=== PATIENT | male | born 1980 | race American Indian/Alaskan Native ===

== ENCOUNTER 2016-11-25 21:45 | Emergency (ER) | payer MEDICARE ==
[2016-11-25 23:04] LABS: Basophils % (Auto) 0.3 % (0.0-1.8); Eosinophils % (Auto) 0.9 % (0.0-4.3); Hematocrit 43.4 % (35.5-45.6); Hemoglobin 14.3 gm/dl (11.8-15.2); Mean Corpuscular HGB Conc 33 % (32-34); Mean Corpuscular Hemoglobin 30 pg (28-32); Mean Corpuscular Volume 91 fl (84-94); Platelet Count 219 K/mm3 (140-440); Red Blood Count 4.78 M/mm3 (3.65-5.03); Red Cell Distribution Width 13.9 % (13.2-15.2); White Blood Count 6.9 K/mm3 (4.5-11.0)
[2016-11-25 23:21] LABS: Anion Gap 21 mmol/L; BUN/Creatinine Ratio 11; Blood Urea Nitrogen 10 mg/dL (9-20); Calcium 8.9 mg/dL (8.4-10.2); Carbon Dioxide 18 mmol/L (22-30); Glucose 123 mg/dL (75-100); Potassium 3.7 mmol/L (3.6-5.0); Sodium 137 mmol/L (137-145)
[2016-11-25] MEDS ORDERED: KEPPRA 1,000 MG/NS 0.75% 100ML 1,000 MG/100 ML BAG IV ONE (23:23)
--- NOTE | 2016-11-25 23:51 | Emergency Department Report ---
HPI - General Chief Complaint: Seizure Time Seen by Provider: 11/25/16 23:23 - HPI HPI: Room 1 The patient is a 36-year-old male presenting with chief complaint of seizure. The patient has a history of seizures but has not had a seizure since age 16 and is currently not on any antiepileptics. Family reports the patient was around a corner with his friends and they reported the patient had 2 seizures approximately 15 minutes apart. The patient complainsof of headache Location: [See above] Duration: [See above] Quality: Generalized tonic-clonic Severity: Moderate Modifying factors: [see above] Context: [see above] Mode of transportation: [not driving] ED Past Medical Hx - Past Medical History Previous Medical History?: Yes Hx Seizures: Yes (Last one at 16yo) - Surgical History Past Surgical History?: No - Family History Family history: no significant - Social History Smoking Status: Never Smoker (1/2 pack per day) Substance Use Type: None (denies illicit drug use but the odor of marijuana is present around the patient), Marijuana (?) - Medications Home Medications: Home Medications Medication Instructions Recorded Confirmed Last Taken Type levETIRAcetam [Keppra] 500 mg PO BID #90 tablet 11/25/16 Unknown Rx ED Review of Systems ROS: Stated complaint: SEIZURES Other details as noted in HPI Comment: All other systems reviewed and negative Constitutional: denies: chills, fever Eyes: as per HPI ENT: other (tongue injury) Respiratory: denies: cough, shortness of breath, wheezing Cardiovascular: chest pain. denies: palpitations Endocrine: no symptoms reported Gastrointestinal: denies: abdominal pain, nausea, diarrhea Genitourinary: denies: urgency, dysuria Musculoskeletal: denies: back pain, joint swelling, arthralgia Skin: denies: rash, lesions Neurological: headache, other (seizure) Psychiatric: denies: anxiety, depression Hematological/Lymphatic: denies: easy bleeding, easy bruising Physical Exam - Physical Exam Vital Signs: Vital Signs 11/25/16 22:32 Temperature 97.6 F Pulse Rate 90 Respiratory 16 Rate Blood Pressure 139/87 [Right] O2 Sat by Pulse 97 Oximetry Physical Exam: GENERAL: The patient is well-developed well-nourished male lying on fracture sleeping but easily awakened. The odor of Marijuana is present and the patient HEENT: Normocephalic. Atraumatic. Extraocular motions are intact. Patient has moist mucous membranes. Mild abrasion to the right aspect of the tongue NECK: Supple. Trachea midline CHEST/LUNGS: Clear to auscultation. There is no respiratory distress noted. HEART/CARDIOVASCULAR: Regular. There is no tachycardia. There is no gallop rub or murmur. ABDOMEN: Abdomen is soft, nontender. Patient has normal bowel sounds. There is no abdominal distention. SKIN: There is no rash. There is no edema. There is no diaphoresis. NEURO: The patient is awake, alert, and oriented. The patient is cooperative. The patient has no focal neurologic deficits. The patient has normal speech. Cranial nerves II through XII grossly intact MUSCULOSKELETAL: There is no evidence of acute injury. ED Course Vital Signs 11/25/16 22:32 Temperature 97.6 F Pulse Rate 90 Respiratory 16 Rate Blood Pressure 139/87 [Right] O2 Sat by Pulse 97 Oximetry - Reevaluation(s) Reevaluation #1: 11/26/16 00:56 Patient currently denies complaints ED Medical Decision Making - Lab Data Result diagrams: 11/25/16 22:42 11/25/16 22:42 Laboratory Tests 11/25/16 11/25/16 11/25/16 22:42 22:42 22:42 WBC 6.9 RBC 4.78 Hgb 14.3 Hct 43.4 MCV 91 MCH 30 MCHC 33 RDW 13.9 Plt Count 219 Lymph % (Auto) 34.3 Sebastian % (Auto) 7.8 H Eos % (Auto) 0.9 Baso % (Auto) 0.3 Lymph # 2.4 Sebastian # 0.5 Eos # 0.1 Baso # 0.0 Seg Neutrophils % 56.7 Seg Neutrophils # 3.9 Sodium 137 Potassium 3.7 Chloride 102.0 Carbon Dioxide 18 L Anion Gap 21 BUN 10 Creatinine 0.9 Estimated GFR > 60 BUN/Creatinine Ratio 11 Glucose 123 H POC Glucose 129 H Calcium 8.9 Magnesium Total Creatine Kinase CK-MB (CK-2) CK-MB (CK-2) Rel Index Troponin T Urine Color Urine Turbidity Urine pH Ur Specific [place] Urine Protein Urine Glucose (UA) Urine Ketones Urine Blood Urine Nitrite Urine Bilirubin Urine Urobilinogen Ur Leukocyte Esterase Urine WBC (Auto) Urine RBC (Auto) Urine Mucus Urine Sperm Urine Opiates Screen Urine Methadone Screen Ur Barbiturates Screen Ur Phencyclidine Scrn Ur Amphetamines Screen U Benzodiazepines Scrn Urine Cocaine Screen 11/25/16 11/25/16 11/26/16 23:30 23:53 00:27 WBC RBC Hgb Hct MCV MCH MCHC RDW Plt Count Lymph % (Auto) Sebastian % (Auto) Eos % (Auto) Baso % (Auto) Lymph # Sebastian # Eos # Baso # Seg Neutrophils % Seg Neutrophils # Sodium Potassium Chloride Carbon Dioxide Anion Gap BUN Creatinine Estimated GFR BUN/Creatinine Ratio Glucose POC Glucose Calcium Magnesium 2.20 Total Creatine Kinase 411 H CK-MB (CK-2) 4.8 H CK-MB (CK-2) Rel Index 1.1 Troponin T < 0.010 Urine Color Yellow Urine Turbidity Clear Urine pH 5.0 Ur Specific [place] 1.014 Urine Protein 100 mg/dl Urine Glucose (UA) Neg Urine Ketones Neg Urine Blood Mod Urine Nitrite Neg Urine Bilirubin Neg Urine Urobilinogen < 2.0 Ur Leukocyte Esterase Neg Urine WBC (Auto) < 1.0 Urine RBC (Auto) 0.0 Urine Mucus Few Urine Sperm Few Urine Opiates Screen Urine Methadone Screen Ur Barbiturates Screen Ur Phencyclidine Scrn Ur Amphetamines Screen U Benzodiazepines Scrn Urine Cocaine Screen 11/26/16 00:27 WBC RBC Hgb Hct MCV MCH MCHC RDW Plt Count Lymph % (Auto) Sebastian % (Auto) Eos % (Auto) Baso % (Auto) Lymph # Sebastian # Eos # Baso # Seg Neutrophils % Seg Neutrophils # Sodium Potassium Chloride Carbon Dioxide Anion Gap BUN Creatinine Estimated GFR BUN/Creatinine Ratio Glucose POC Glucose Calcium Magnesium Total Creatine Kinase CK-MB (CK-2) CK-MB (CK-2) Rel Index Troponin T Urine Color Urine Turbidity Urine pH Ur Specific [place] Urine Protein Urine Glucose (UA) Urine Ketones Urine Blood Urine Nitrite Urine Bilirubin Urine Urobilinogen Ur Leukocyte Esterase Urine WBC (Auto) Urine RBC (Auto) Urine Mucus Urine Sperm Urine Opiates Screen Presumptive negative Urine Methadone Screen Presumptive negative Ur Barbiturates Screen Presumptive negative Ur Phencyclidine Scrn Presumptive negative Ur Amphetamines Screen Presumptive negative U Benzodiazepines Scrn Presumptive negative Urine Cocaine Screen Presumptive negative - EKG Data -: EKG Interpreted by Ok EKG shows normal: sinus rhythm Rate: normal - EKG Data When compared to previous EKG there are: previous EKG unavailable Interpretation: other (no ischemic changes seen) - Radiology Data Radiology results: report reviewed (CT head), image reviewed (CT head) CT head (read by radiologist)-negative examination - Differential Diagnosis seizure Critical care attestation.: If time is entered above; I have spent that time in minutes in the direct care of this critically ill patient, excluding procedure time. ED Disposition Clinical Impression: Seizure Disposition: DC-01 TO HOME OR SELFCARE Is pt being admited?: No Does the pt Need Aspirin: No Condition: Stable Instructions: Epilepsy (ED), Recurrent Seizures Adult (ED) Additional Instructions: Return to the emergency department immediately should you develop worsening symptoms, fever, inability to tolerate food or liquid or any other concerns. Prescriptions: levETIRAcetam [Keppra] 500 mg PO BID #90 tablet Referrals: PRIMARY CARE, [Primary Care Provider] - 3-5 Days RAMON HUA MD [Staff Physician] - 3-5 Days (Dr. Hua is a neurologist. Please follow-up with him for further evaluation) Time of Disposition: 00:55 (d/c with mother)
[2016-11-26 00:16] LABS: Creatine Kinase MB 4.8 ng/mL (0.0-4.0)
[2016-11-26 00:17] LABS: Creatine Kinase 411 units/L (55-170)
--- NOTE | 2016-11-26 00:31 | Cat Scan Report ---
FINAL REPORT PROCEDURE: CT HEAD/BRAIN WO CON TECHNIQUE: Computerized tomography of the head was performed without contrast material. HISTORY: seizure COMPARISON: No prior studies are available for comparison. FINDINGS: Brain: Brain density appears normal. No evidence of intracranial hemorrhage. No parenchymal hemorrhage, mass lesions or mass effect are seen. No abnormal extraxial fluid collects or masses are seen. Ventricles: Ventricles are normal size and are midline. Bone Windows: No evidence of skull fracture. Paranasal sinuses: Visualized portions appear clear per Mastoid air cells: Clear IMPRESSION: Negative examination. If clinically indicated MRI of the brain could be obtained to evaluate for possible seizure focus.
[2016-11-26 00:37] LABS: Urine Drugs of Abuse Note Disclamer
[2016-11-26 00:43] LABS: Bilirubin,Urine NEG (Negative); Blood,Urine MOD (Negative); Ketones,Urine NEG (Negative); Leukocyte Esterase,Urine NEG (Negative); Mucus,Urine FEW /HPF; Nitrite,Urine NEG (Negative); Sperm,Urine FEW /HPF (NP); Urobilinogen,Urine < 2.0 mg/dL (<2.0); WBC,Urine < 1.0 /HPF (0.0-6.0)
[2016-11-26 01:30] VITALS: BP 153/109
== END 2016-11-26 01:30 | disposition home or self-care (01) ==
LOC: ED 21:45
DX: R56.9 Unspecified convulsions (principal)
CPT/HCPCS: 36415; 70450; 80048; 80307; 81001; 82550; 82553; 82962; 83735; 84484; 85025; 93005; 93010; 96365; 99285; J1953

== ENCOUNTER 2018-02-24 17:26 | Emergency (ER) | payer MEDICARE ==
[2018-02-24] MEDS ORDERED: KEPPRA 1,000 MG/NS 0.75% 100ML 1,000 MG/100 ML BAG IV ONE ×2 (17:43→17:46)
--- NOTE | 2018-02-24 17:57 | Emergency Department Report ---
HPI - General Time Seen by Provider: 02/24/18 17:42 - HPI HPI: Room 23 The patient is a 38-year-old male presenting with a chief complaint of seizure. The patient was reportedly at work when he had a generalized tonic-clonic seizure. He states the patient had a history of seizures since he was young but his last seizure occurred in 2017. Patient is supposed to be on Keppra. Patient was administered Ativan by EMS prior to arrival so he is groggy and postictal. When the patient is awake and asked if anything is bothering the patient acknowledges that he feels okay. Location: [facility] Duration: [See above] Quality: Generalized tonic-clonic Severity: [See above] Modifying factors: [see above] Context: [see above] Mode of transportation: [not driving] ED Past Medical Hx - Past Medical History Hx Seizures: Yes - Surgical History Additional Surgical History: Craniotomy - Family History Family history: no significant - Social History Smoking Status: Never Smoker (1/2 pack per day) Substance Use Type: None (denies illicit drug use but the odor of marijuana is present around the patient) - Medications Home Medications: Home Medications Medication Instructions Recorded Confirmed Last Taken Type levETIRAcetam [Keppra] 500 mg PO BID #90 tablet 02/24/18 Unknown Rx ED Review of Systems ROS: Stated complaint: SEIZURE Other details as noted in HPI Constitutional: no symptoms reported Eyes: denies: eye pain ENT: denies: throat pain Respiratory: no symptoms reported Physical Exam - Physical Exam Physical Exam: GENERAL: The patient is well-developed well-nourished male lying on stretcher resting on appearing to be in acute distress. [] HEENT: Normocephalic. Atraumatic. Extraocular motions are intact. Patient has moist mucous membranes. NECK: Supple. Trachea midline CHEST/LUNGS: Clear to auscultation. There is no respiratory distress noted. HEART/CARDIOVASCULAR: Regular. There is no tachycardia. There is no gallop rub or murmur. ABDOMEN: Abdomen is soft, nontender. Patient has normal bowel sounds. There is no abdominal distention. SKIN: There is no rash. There is no edema. There is no diaphoresis. NEURO: The patient is postictal and groggy. Patient shakes his head "no" when asked if anything is bothering him MUSCULOSKELETAL: There is no evidence of acute injury. ED Medical Decision Making - Lab Data Result diagrams: 02/24/18 17:56 02/24/18 17:56 Laboratory Tests 02/24/18 02/24/18 02/24/18 17:44 17:56 17:56 WBC 5.8 RBC 4.95 Hgb 14.9 Hct 45.1 MCV 91 MCH 30 MCHC 33 RDW 14.4 Plt Count 240 Lymph % (Auto) 44.3 H [place] % (Auto) 8.3 H Eos % (Auto) 1.5 Baso % (Auto) 0.7 Lymph # 2.6 [place] # 0.5 Eos # 0.1 Baso # 0.0 Seg Neutrophils % 45.2 Seg Neutrophils # 2.6 Sodium 140 Potassium 3.8 Chloride 101.4 Carbon Dioxide 21 L Anion Gap 21 BUN 11 Creatinine 1.0 Estimated GFR > 60 BUN/Creatinine Ratio 11 Glucose 132 H POC Glucose 119 H Calcium 9.1 Magnesium 02/24/18 17:56 WBC RBC Hgb Hct MCV MCH MCHC RDW Plt Count Lymph % (Auto) [place] % (Auto) Eos % (Auto) Baso % (Auto) Lymph # [place] # Eos # Baso # Seg Neutrophils % Seg Neutrophils # Sodium Potassium Chloride Carbon Dioxide Anion Gap BUN Creatinine Estimated GFR BUN/Creatinine Ratio Glucose POC Glucose Calcium Magnesium 2.30 - Differential Diagnosis seizure Critical care attestation.: If time is entered above; I have spent that time in minutes in the direct care of this critically ill patient, excluding procedure time. ED Disposition Clinical Impression: Seizure Disposition: DC-01 TO HOME OR SELFCARE Is pt being admited?: No Does the pt Need Aspirin: No Condition: Stable Instructions: Epilepsy (ED) Additional Instructions: Return to the emergency department immediately should you develop worsening symptoms, fever, inability to tolerate food or liquid or any other concerns. Prescriptions: levETIRAcetam [Keppra] 500 mg PO BID #90 tablet Referrals: ANNCY ZAMORA MD [Primary Care Provider] - 3-5 Days
[2018-02-24 18:24] LABS: Basophils % (Auto) 0.7 % (0.0-1.8); Eosinophils # (Auto) 0.1 K/mm3 (0.0-0.4); Eosinophils % (Auto) 1.5 % (0.0-4.3); Hematocrit 45.1 % (35.5-45.6); Hemoglobin 14.9 gm/dl (11.8-15.2); Lymphocytes # (Auto) 2.6 K/mm3 (1.2-5.4); Lymphocytes % (Auto) 44.3 % (13.4-35.0); Mean Corpuscular HGB Conc 33 % (32-34); Mean Corpuscular Volume 91 fl (84-94); Monocytes # (Auto) 0.5 K/mm3 (0.0-0.8); Monocytes % (Auto) 8.3 % (0.0-7.3); Platelet Count 240 K/mm3 (140-440); Red Blood Count 4.95 M/mm3 (3.65-5.03); Red Cell Distribution Width 14.4 % (13.2-15.2)
[2018-02-24 18:43] LABS: BUN/Creatinine Ratio 11; Blood Urea Nitrogen 11 mg/dL (9-20); Calcium 9.1 mg/dL (8.4-10.2); Hemolysis Index 7
[2018-02-24 20:36] VITALS: BP 132/74
== END 2018-02-24 20:45 | disposition home or self-care (01) ==
LOC: ED 17:26
DX: R56.9 Unspecified convulsions (principal); F17.210 Nicotine dependence, cigarettes, uncomplicated
CPT/HCPCS: 36415; 80048; 82962; 83735; 85025; 96374; 99284; J1953

== ENCOUNTER 2018-04-11 16:58 | Emergency (ER) | payer MEDICARE ==
[2018-04-11] MEDS ORDERED: KEPPRA 1,000 MG/NS 0.75% 100ML 1,000 MG/100 ML BAG IV ONE (17:27)
--- NOTE | 2018-04-11 17:30 | Emergency Department Report ---
HPI - General Chief Complaint: Seizure Time Seen by Provider: 04/11/18 17:15 - HPI HPI: 38-year-old male presents to the emergency department after a witnessed seizure just prior to arrival. It was witnessed by his sister. The patient has a history of autism and a seizure disorder. He also has a history of a previous craniotomy. He takes Keppra, 1000 TWICE daily, and allegedly is compliant. The patient is awake and alert and has no current complaints. He is hard of hearing. He has a primary care physician. His appointment with his neurologist on Tuesday, in 3 days. He did not take anything and was not given anything for his symptoms prior to arrival. ED Past Medical Hx - Past Medical History Previous Medical History?: Yes Hx Seizures: Yes Additional medical history: autism. hearing impaired/deaf - Surgical History Past Surgical History?: Yes Additional Surgical History: Craniotomy - Social History Smoking Status: Current Every Day Smoker Substance Use Type: Marijuana - Medications Home Medications: Home Medications Medication Instructions Recorded Confirmed Last Taken Type RX: levETIRAcetam [Keppra] 500 mg PO BID #90 tablet 02/24/18 Unknown Rx ED Review of Systems ROS: Stated complaint: SEIZURE Other details as noted in HPI Comment: All other systems reviewed and negative Constitutional: denies: chills, fever Eyes: denies: eye pain, vision change ENT: denies: ear pain, throat pain Respiratory: denies: cough, shortness of breath Cardiovascular: denies: chest pain, palpitations Gastrointestinal: denies: abdominal pain, vomiting Genitourinary: denies: urgency, dysuria Musculoskeletal: denies: back pain, arthralgia Skin: denies: rash, lesions Neurological: other (seizure). denies: headache Physical Exam - Physical Exam Vital Signs: Vital Signs 04/11/18 17:06 Temperature 96.9 F L Pulse Rate 80 Respiratory 20 Rate Blood Pressure 136/84 O2 Sat by Pulse 100 Oximetry Physical Exam: GENERAL: The patient is well-developed well-nourished. HEENT: Normocephalic. Atraumatic. Patient has moist mucous membranes. EYES: Extraocular motions are intact. Pupils are equal and reactive to light bilaterally. NECK: Supple. Trachea is midline. CHEST/LUNGS: Clear to auscultation. There is no respiratory distress noted. HEART/CARDIOVASCULAR: Regular. There is no tachycardia. There is no obvious murmur. ABDOMEN: Abdomen is soft, nontender. Patient has normal bowel sounds. There is no abdominal distention. SKIN: Skin is warm and dry. NEURO: The patient is awake, alert, and oriented. The patient is cooperative. The patient has no focal neurologic deficits. MUSCULOSKELETAL: There is no tenderness or deformity. There is no limitation range of motion. There is no evidence of acute injury. ED Course Vital Signs 04/11/18 17:06 Temperature 96.9 F L Pulse Rate 80 Respiratory 20 Rate Blood Pressure 136/84 O2 Sat by Pulse 100 Oximetry ED Medical Decision Making - Lab Data Result diagrams: 04/11/18 17:56 04/11/18 17:56 - EKG Data -: EKG Interpreted by Me EKG shows normal: sinus rhythm, axis, intervals, QRS complexes (LVH), ST-T waves Rate: normal - EKG Data When compared to previous EKG there are: previous EKG unavailable Interpretation: LVH - Medical Decision Making Patient presents to the emergency department after having a seizure witnessed at home. Since being in the emergency department he has been awake and alert and in no acute distress. There are no acute focal, motor or sensory deficits. EKG did not show any signs of ST elevation [place] or dysrhythmia. Labs were unremarkable including a CBC, BMP, TSH, CK. Since the patient has a known seizure disorder, had only one seizure today, and has been awake and alert throughout his ED course, I did not feel that any CT imaging of the head was necessary at this time. He has a primary care physician for follow-up and has an appointment in 2 days with his neurologist. He was loaded with a gram of Keppra. He has been instructed to return to the emergency department with any further seizure-like activity with any acute distress. - Differential Diagnosis epilepsy, dysrhythmia, hypoglycemia, electrolyte abnormality Critical Care Time: No Critical care attestation.: If time is entered above; I have spent that time in minutes in the direct care of this critically ill patient, excluding procedure time. ED Disposition Clinical Impression: Seizure disorder Disposition: DC-01 TO HOME OR SELFCARE Is pt being admited?: No Condition: Stable Instructions: Recurrent Seizures Adult (ED) Additional Instructions: Please follow-up with your primary care physician in the next few days. Please follow-up with your neurologist on Tuesday as previously scheduled. Continue taking your antiepileptic medications. Return to the emergency department with any further seizure-like activity, worsening of your symptoms, if any acute distress. Referrals: NANCY ZAMORA MD [Primary Care Provider] - 2-3 Days Time of Disposition: 19:57
[2018-04-11] MEDS ORDERED: ZOFRAN ONE (17:37)
[2018-04-11] MEDS ORDERED: ZOFRAN IV ONE (17:50)
[2018-04-11 18:33] LABS: Basophils % (Auto) 0.3 % (0.0-1.8); Eosinophils % (Auto) 0.5 % (0.0-4.3); Hematocrit 46.1 % (35.5-45.6); Hemoglobin 15.4 gm/dl (11.8-15.2); Lymphocytes # (Auto) 1.5 K/mm3 (1.2-5.4); Lymphocytes % (Auto) 23.4 % (13.4-35.0); Mean Corpuscular HGB Conc 33 % (32-34); Mean Corpuscular Volume 90 fl (84-94); Monocytes # (Auto) 0.5 K/mm3 (0.0-0.8); Monocytes % (Auto) 7.9 % (0.0-7.3); Platelet Count 210 K/mm3 (140-440); Red Blood Count 5.11 M/mm3 (3.65-5.03); Red Cell Distribution Width 13.8 % (13.2-15.2)
[2018-04-11 19:04] LABS: Alanine Aminotransferase 16 units/L (7-56); Albumin 4.3 g/dL (3.9-5); BUN/Creatinine Ratio 13; Blood Urea Nitrogen 12 mg/dL (9-20); Hemolysis Index 11
[2018-04-11] MEDS ORDERED: K-DUR PO ONE (20:09)
[2018-04-11 20:19] VITALS: BP 134/90
== END 2018-04-11 20:20 | disposition home or self-care (01) ==
LOC: ED 16:58
DX: G40.909 Epilepsy, unspecified, not intractable, without status epilepticus (principal); F84.0 Autistic disorder; F17.200 Nicotine dependence, unspecified, uncomplicated; F12.90 Cannabis use, unspecified, uncomplicated
CPT/HCPCS: 36415; 80053; 82550; 85025; 93005; 93010; 96374; 96375; 99284; G0480; J1953; J2405; 80320

== ENCOUNTER 2018-05-12 08:47 | Outpatient (CLI) | payer MEDICARE ==
--- NOTE | 2018-05-13 09:56 | Magnetic Resonance Report ---
PROCEDURE: MR BRAIN WO CON TECHNIQUE: Multisequence, multiplanar MR imaging is obtained through the brain without contrast HISTORY: Unspecified convulsions COMPARISONS: Head CT 11/26/2016 FINDINGS: There is no restricted diffusion or abnormal susceptibility. The ventricles and cisterns and sulci a re within normal limits. No midline shift or herniation. No intraparenchymal mass, mass effect or h emorrhage. Vascular flow voids are unremarkable. Rodriguez and white matter signal characteristics are a lso within normal limits. Parahippocampal gyri are symmetric in size and signal. Normal spherical sha pe of the globes. No abnormal signal within the paranasal sinuses or mastoid air cells. IMPRESSION: Unremarkable MRI Brain. This document is electronically signed by Adrián Collins MD., May 13 2018 09:53:49 AM ET
== END 2018-05-12 08:48 | disposition home or self-care (01) ==
LOC: MRI 08:47
PROVIDERS: ATTEND Psychiatry & Neurology Neurology
DX: R56.9 Unspecified convulsions (principal)
CPT/HCPCS: 70551